=== PATIENT | male | born 1970 | race African-American/Black ===

== ENCOUNTER 2020-01-04 23:26 | Emergency (ER) | payer BC, OTHER ==
[2020-01-04 23:49] VITALS: PULSE 72; TEMP 98.1; BMI 32.6
[2020-01-05] MEDS ORDERED: ASPIRIN 81 MG CHEWABLE TABLETS PO ONE (00:09)
[2020-01-05] MEDS ORDERED: ASPIRIN 81 MG CHEWABLE TABLETS ONE (00:19)
--- NOTE | 2020-01-05 00:23 | PDOC ---
History of Present Illness - General Chief Complaint: Syncope/Near Syncope Stated Complaint: SYNCOPE Time Seen by Provider: 01/04/20 23:51 History Source: Patient Exam Limitations: No Limitations - History of Present Illness Initial Comments: 01/05/20 00:16 49 yo male pmh asthma, HTN (not taking medications) NC s/p 1 stent 12 years ago (not on AC or daily ASA) presents to the ED for sudden onset dizziness and weakness. at the bedside helps provide HPI. States around 10 pm pt noted to have gotten up from seated position, became significantly weak, nauseas (no vomiting) diaphoretic, had to hold the pt upright and sit him on the bed. Symptoms resolved over 1 hour, denies CP, SOB, back pain, WHITE, abdominal pain, changes in bowel or bladder habits, ear pain, recent illness. Past History - Past Medical History Allergies/Adverse Reactions: Allergies Allergy/AdvReac Type Severity Reaction Status Date / Time No Known Allergies Allergy Verified 01/05/20 16:19 Home Medications: Ambulatory Orders Albuterol Sulfate 0.042% [Ventolin 0.042% (Half-Strength) -] 1 neb PO Q4H PRN Montelukast Na [Singulair -] 10 mg PO DAILY 08/30/12 Ramipril [Altace] 10 mg PO DAILY 08/30/12 Salmeterol/Fluticasone [Advair 250Mcg/50Mcg -] 1 inh PO BID 08/30/12 Valsartan/Hydrochlorothiazide [Diovan Hct 160-25 mg Tablet] 1 combo PO DAILY 29/11 Ferrous Sulfate [Slow Fe] 142 mg PO BID #60 tablet.er 09/04/12 Vit C/Ascorbate Calcium,Sodium [Vitamin C 500 mg/15 ml Liquid] 500 mg PO BID # 60 ml 09/04/12 Asthma: Yes HTN: Yes - Surgical History Cardiac Surgery: Yes (stent placement x1) - Psycho Social/Smoking Cessation Hx Smoking Status: No Smoking History: Never smoked Number of Cigarettes Smoked Daily: 0 Hx Alcohol Use: No Drug/Substance Use Hx: No Substance Use Type: None Hx Substance Use Treatment: No Review of Systems - Review of Systems Constitutional: Yes: See HPI HEENTM: Yes: See HPI Respiratory: Yes: See HPI Cardiac (ROS): Yes: See HPI ABD/GI: Yes: See HPI : Yes: See HPI Musculoskeletal: Yes: See HPI Integumentary: Yes: See HPI Neurological: Yes: See HPI *Physical Exam - Vital Signs Last Vital Signs Temp Pulse Resp BP Pulse Ox 98.1 F 72 19 181/98 H 98 01/04/20 23:30 01/04/20 23:30 01/04/20 23:30 01/04/20 23:30 01/04/20 23:30 - Physical Exam General Appearance: Yes: Nourished, Appropriately Dressed. No: Apparent Distress HEENT: positive: EOMI Neck: positive: Supple. negative: Carotid bruit Respiratory/Chest: positive: Lungs Clear, Normal Breath Sounds. negative: Accessory Muscle Use, Labored Respiration, Crackles, Rales, Rhonchi, Stridor, Wheezing Cardiovascular: positive: Regular Rhythm, Regular Rate, S1, S2. negative: Edema , JVD, Murmur Vascular Pulses: Dorsalis-Pedis (R): 3+, Doralis-Pedis (L): 3+ Gastrointestinal/Abdominal: positive: Flat, Soft. negative: Protuberent, Distended, Guarding, Rebound, Tenderness Musculoskeletal: negative: CVA Tenderness Extremity: positive: Normal Capillary Refill, Normal Inspection, Normal Range of Motion Integumentary: positive: Normal Color, Dry, Warm Neurologic: positive: Fully Oriented, Alert, Normal Mood/Affect, Normal Response Heart Score/ECG Review - History History: Moderately suspicious - Electrocardiogram EKG: Normal - Age Age: 45-65 - Risk Factors Risk Factors Heart Score: Yes Hx Hypertension, Yes Hx Obesity - Troponin Troponin: </= normal limit ED Treatment Course - LABORATORY CBC & Chemistry Diagram: 01/05/20 01:04 01/05/20 01:04 - RADIOLOGY Radiology Studies Ordered: Category Date Time Status CHEST PA & LAT [RAD] Stat Radiology 01/05/20 00:09 Ordered Medical Decision Making - Medical Decision Making 01/05/20 01:45 49 yo male pmh asthma, HTN (not taking medications) NC s/p 1 stent 12 years ago (not on AC or daily ASA) presents to the ED for sudden onset dizziness and weakness. at the bedside helps provide HPI. States around 10 pm pt noted to have gotten up from seated position, became significantly weak, nauseas (no vomiting) diaphoretic, had to hold the pt upright and sit him on the bed. Symptoms resolved over 1 hour, denies CP, SOB, back pain, WHITE, abdominal pain, changes in bowel or bladder habits, ear pain, recent illness. vitals show elevated BP, known hx not on medications. Repeat at bed side 170s systolic. Neg orthostatics Cardiac work up Labs WNL including trop EKG NSR without changes 01/05/20 04:17 Pt refuses admission and requests to S/O AMA. Explained on 3 separate occasions that leaving the hospital can result in or permanent disability. Pt AOX3 expresses clear understanding in the presence of his and requests to leave. Will provide Cardiology F/U and offered return precautions pt understands Discharge - Discharge Information Problems reviewed: Yes Clinical Impression/Diagnosis: Syncope Condition: Stable Disposition: AGAINST MEDICAL ADVICE - Follow up/Referral Referrals: Lenard Garcia MD [Primary Care Provider] - Blue Brand MD [Staff Physician] - - Patient Discharge Instructions Patient Printed Discharge Instructions: DI for Syncope in Adults (Fainting), DI for Atypical Chest Pain Additional Instructions: You left the ER against medical advise with the understanding that leaving may lead to permanent or disability. You may return to the ER at anytime for continued care. Call the Principal Cyber Engineer referred to you to make an appointment and see your Primary Doctor within the next 48 hours. Thank you - Post Discharge Activity
--- NOTE | 2020-01-05 01:22 | PDOC ---
Documentation entered by Bertram Gonsalves SCRIBE, acting as scribe for Glenys Arteaga MD. Glenys Arteaga MD: This documentation has been prepared by the Brina cates Xhesika, SCRIBE, under my direction and personally reviewed by me in its entirety. I confirm that the documentation accurately reflects all work, treatment, procedures, and medical decision making performed by me. Attending Attestation - Resident Resident Name: KendrickviniSherman - ED Attending Attestation I have performed the following: I have examined & evaluated the patient, The case was reviewed & discussed with the resident, I agree w/resident's findings & plan, Exceptions are as noted - HPI HPI: 01/05/20 00:21 The patient is a 49 year old male with a significant PMH of HTN, hld, asthma, TX, CAD s/p stent who presents to the emergency department for syncopal episode. The patient states he stood up, felt dizzy and caught him before falling down. Pt states he lost 75 pounds in the last year being on "herbalife" and going to the gym. The patient denies chest pain, shortness of breath, headache and dizziness. Denies fever, chills, cough, nausea, vomiting, diarrhea and constipation. Denies dysuria, frequency, urgency and hematuria. Allergies: NKDA PCP: Lenard Major - Physicial Exam PE: 01/05/20 00:21 GENERAL: Awake, alert, and fully oriented, in no acute distress HEAD: No signs of trauma EYES: PERRLA, EOMI, sclera anicteric, conjunctiva clear ENT: Auricles normal inspection, hearing grossly normal, nares patent, oropharynx clear without exudates. Moist mucosa NECK: Normal ROM, supple, no lymphadenopathy, JVD, or masses LUNGS: Breath sounds equal, clear to auscultation bilaterally. No wheezes, and no crackles HEART: Regular rate and rhythm, normal S1 and S2, no murmurs, rubs or gallops ABDOMEN: Soft, nontender, normoactive bowel sounds. No guarding, no rebound. No masses EXTREMITIES: Normal range of motion, no edema. No clubbing or cyanosis. No cords, erythema, or tenderness NEUROLOGICAL: Cranial nerves II through XII grossly intact. SKIN: Warm, Dry, normal turgor, no rashes or lesions noted. - Medical Decision Making 01/05/20 01:19 49-year-old male with a history of syncopal episode in which his caught him and sat him down Past medical history hypertension, hyper atherosclerotic heart disease, status post cardiac cath with 1 stent 12 years ago, hyperlipidemia, asthma Patient felt that the room was spinning He currently is denying any acute chest pain or shortness of breath However given his past medical history we will do ASC work-up He has lost 75 pounds over the past year following Herbalife and working out the gym. Unfortunately he has not been taking any medications and he had been on several hypertensive medicines in the past EKG is normal sinus rhythm at 78 bpm 01/05/20 01:30 imp syncope/ ACS w/u
[2020-01-05 01:33] LABS: BASO % 0.7 % (0-2.0); EOS % 4.7 % (0-4.5); HEMATOCRIT 45.5 % (35.4-49); HEMOGLOBIN 14.8 GM/dL (11.7-16.9); LYMPH % 28.8 % (8-40); MCH 27.7 pg (25.7-33.7); MCHC 32.5 g/dl (32.0-35.9); MEAN CELL VOLUME 85.2 fl (80-96); MONO % 14.1 % (3.8-10.2); NEUT % 51.7 % (42.8-82.8); PLATELET COUNT 241 K/MM3 (134-434); RBC 5.34 M/mm3 (4.00-5.60); RDW 13.2 % (11.9-15.9); WHITE BLOOD COUNT 7.2 K/mm3 (4.0-10.0)
[2020-01-05] MEDS ORDERED: amLODIPine BESYLATE 5 MG TABLET (FP) PO ONE (01:45)
[2020-01-05 02:00] LABS: ALBUMIN 3.3 g/dl (3.4-5.0); BILIRUBIN,TOTAL 0.2 mg/dL (0.2-1); BLOOD UREA NITROGEN 16.8 mg/dL (7-18); CALCIUM 8.9 mg/dL (8.5-10.1); CREATININE 0.8 mg/dL (0.55-1.3); MAGNESIUM 2.3 mg/dL (1.8-2.4); POTASSIUM 3.2 mmol/L (3.5-5.1); TOT PROT 6.7 g/dl (6.4-8.2)
[2020-01-05] MEDS ORDERED: amLODIPine BESYLATE 5 MG TABLET (FP) ONE (02:28)
[2020-01-05 02:32] VITALS: BP 176/100
[2020-01-05 02:32] LABS: INR 1.11 (0.83-1.09); PROTHROMBIN TIME (PATIENT) 13.1 SEC (9.7-13.0)
[2020-01-05 02:34] LABS: ACTIVATED PTT 28.4 SECONDS (25.2-36.5)
--- NOTE | 2020-01-05 09:24 | EKG ---
Test Reason : Blood Pressure : / mmHG Vent. Rate : 078 BPM Atrial Rate : 078 BPM P-R Int : 142 ms QRS Dur : 104 ms QT Int : 406 ms P-R-T Axes : 042 035 011 degrees QTc Int : 462 ms NORMAL SINUS RHYTHM NORMAL ECG WHEN COMPARED WITH ECG OF 29-AUG-2012 23:46, QT HAS SHORTENED Confirmed by Gilberto Wyatt MD ([id number]) on 01/05/2020 9:24:02 AM Referred By: Confirmed By:Gilberto Wyatt MD
== END 2020-01-05 04:32 | disposition left against medical advice (07) ==
LOC: SUPCPDRO 23:26 → JER 23:26
DX: R55 Syncope and collapse (principal); I25.10 Atherosclerotic heart disease of native coronary artery without angina pectoris; I10 Essential (primary) hypertension; Z95.5 Presence of coronary angioplasty implant and graft; I25.2 Old myocardial infarction; J45.909 Unspecified asthma, uncomplicated
CPT/HCPCS: 36415; 80053; 82550; 82553; 83735; 84484; 85025; 85610; 85730; 93005; 93010; 99284-25

== ENCOUNTER 2020-01-05 15:34 | Emergency (ER) | payer BC ==
[2020-01-05 16:23] VITALS: BMI 33.1
--- NOTE | 2020-01-05 16:24 | PDOC ---
Rapid Medical Evaluation Time Seen by Provider: 01/05/20 16:20 Medical Evaluation: Allergies Allergy/AdvReac Type Severity Reaction Status Date / Time No Known Allergies Allergy Verified 01/05/20 16:19 01/05/20 16:23 Pt c/o: continual nausea since AMA at 430am, no CP Pt on brief exam: 176/94, otherwise normal vs Pt ordered for: iv , labs, mag, pt to proceed to the ED Discharge Disposition - Diagnosis Syncope - Discharge Dispostion Disposition: HOME Condition at time of disposition: Stable - Referrals Referrals: Lenard Garcia MD [Primary Care Provider] - Blue Brand MD [Staff Physician] - - Patient Instructions Printed Discharge Instructions: DI for Syncope in Adults (Fainting) Additional Instructions: You left the ER against medical advise with the understanding that leaving may lead to permanent or disability. You may return to the ER at anytime for continued care. Call the Folder Hand referred to you to make an appointment and see your Primary Doctor within the next 48 hours. Thank you - Post Discharge Activity
[2020-01-05 17:23] LABS: BASO % 0.3 % (0-2.0); EOS % 4.6 % (0-4.5); HEMOGLOBIN 15.2 GM/dL (11.7-16.9); LYMPH % 28.9 % (8-40); MCH 28.1 pg (25.7-33.7); MEAN CELL VOLUME 85.4 fl (80-96); MEAN PLT VOLUME 10.9 fl (7.5-11.1); MONO % 15.9 % (3.8-10.2); NEUT % 50.3 % (42.8-82.8); PLATELET COUNT 242 K/MM3 (134-434); RBC 5.39 M/mm3 (4.00-5.60); RDW 13.7 % (11.9-15.9); WHITE BLOOD COUNT 5.9 K/mm3 (4.0-10.0)
[2020-01-05 18:23] LABS: ALBUMIN 3.4 g/dl (3.4-5.0); BILIRUBIN,TOTAL 0.4 mg/dL (0.2-1); BLOOD UREA NITROGEN 11.7 mg/dL (7-18); CALCIUM 9.1 mg/dL (8.5-10.1); CREATININE 0.8 mg/dL (0.55-1.3); MAGNESIUM 2.2 mg/dL (1.8-2.4); POTASSIUM 3.7 mmol/L (3.5-5.1); TOT PROT 7.1 g/dl (6.4-8.2)
--- NOTE | 2020-01-05 21:37 | PDOC ---
Attending Attestation - Resident Resident Name: Sherman Wiley - ED Attending Attestation I have performed the following: I have examined & evaluated the patient, The case was reviewed & discussed with the resident, I agree w/resident's findings & plan, Exceptions are as noted - HPI HPI: 01/05/20 21:36 This 49-year-old male was seen in the emergency department last evening after having a syncopal episode but left AGAINST MEDICAL ADVICE. He returns today because his is upset he left AGAINST MEDICAL ADVICE. He has not had a recurrent syncopal episode since leaving last evening. - Physicial Exam PE: 01/05/20 21:57 Well-nourished well-developed 49-year-old male in no acute distress ambulating emergency communications department chair normocephalic atraumatic Neck is supple there is no bruits and no JVD Lungs are clear to auscultation bilaterally CVS is regular rate and rhythm S1-S2 His abdomen is nontender Skin warm and dry Neuro he is alert and oriented x3, motor strength 5/5 bilaterally, ambulating with ease - Medical Decision Making 01/05/20 21:58 49-year-old male had a syncopal episode last night and then left AMA returns because of concerns of his He has not had any recurrent symptoms He denies any chest pain, any shortness of breath, any dizziness nausea vomiting weakness or visual changes His labs were repeated ,his troponin remains negative 01/05/20 22:02 Patient told to follow-up with his silk trimmer Dr. Blue Brand and call tomorrow to make an appointment
[2020-01-05 22:45] VITALS: BP 171/93; PULSE 90; TEMP 97.8
--- NOTE | 2020-01-05 22:54 | PDOC ---
History of Present Illness - General Chief Complaint: Syncope/Near Syncope Stated Complaint: SYNCOPE Time Seen by Provider: 01/05/20 16:20 History Source: Patient Exam Limitations: No Limitations - History of Present Illness Initial Comments: 01/05/20 22:44 Pt seen by me yesterday Note below "49 yo male pmh asthma, HTN (not taking medications) [place] s/p 1 stent 12 years ago (not on AC or daily ASA) presents to the ED for sudden onset dizziness and weakness. at the bedside helps provide HPI. States around 10 pm pt noted to have gotten up from seated position, became significantly weak, nauseas (no vomiting) diaphoretic, had to hold the pt upright and sit him on the bed. Symptoms resolved over 1 hour, denies CP, SOB, back pain, WHITE, abdominal pain, changes in bowel or bladder habits, ear pain, recent illness." Denies having another presyncopal episode, CP, Palpitations, SOB or any new changes Pt reports back to the ED because his urged him to return since he signed out AMA last night Past History - Past Medical History Allergies/Adverse Reactions: Allergies Allergy/AdvReac Type Severity Reaction Status Date / Time No Known Allergies Allergy Verified 01/05/20 16:19 Home Medications: Ambulatory Orders Albuterol Sulfate 0.042% [Ventolin 0.042% (Half-Strength) -] 1 neb PO Q4H PRN Montelukast Na [Singulair -] 10 mg PO DAILY 08/30/12 Ramipril [Altace] 10 mg PO DAILY 08/30/12 Salmeterol/Fluticasone [Advair 250Mcg/50Mcg -] 1 inh PO BID 08/30/12 Valsartan/Hydrochlorothiazide [Diovan Hct 160-25 mg Tablet] 1 combo PO DAILY 29/11 Ferrous Sulfate [Slow Fe] 142 mg PO BID #60 tablet.er 09/04/12 Vit C/Ascorbate Calcium,Sodium [Vitamin C 500 mg/15 ml Liquid] 500 mg PO BID # 60 ml 09/04/12 Asthma: Yes COPD: No HTN: Yes - Surgical History Cardiac Surgery: Yes (stent placement x1) - Immunization History Td Vaccination: Yes TDAP Vaccination: Yes Immunization Up to Date: Yes - Psycho Social/Smoking Cessation Hx Smoking Status: No Smoking History: Unknown if ever smoked Number of Cigarettes Smoked Daily: 0 Hx Alcohol Use: No Drug/Substance Use Hx: No Substance Use Type: None Hx Substance Use Treatment: No Review of Systems - Review of Systems Constitutional: Yes: See HPI HEENTM: Yes: See HPI Respiratory: Yes: See HPI Cardiac (ROS): Yes: See HPI ABD/GI: Yes: See HPI : Yes: See HPI Musculoskeletal: Yes: See HPI Integumentary: Yes: See HPI Neurological: Yes: See HPI *Physical Exam - Vital Signs Last Vital Signs Temp Pulse Resp BP Pulse Ox 98.1 F 79 16 176/94 H 98 01/05/20 16:21 01/05/20 16:21 01/05/20 16:21 01/05/20 16:21 01/05/20 16:21 - Physical Exam General Appearance: Yes: Nourished, Appropriately Dressed. No: Apparent Distress HEENT: positive: EOMI Respiratory/Chest: positive: Lungs Clear, Normal Breath Sounds. negative: Respiratory Distress, Rapid RR, Crackles, Rales, Rhonchi, Stridor, Wheezing Cardiovascular: positive: Regular Rhythm, Regular Rate, S1, S2. negative: Edema , JVD, Murmur Vascular Pulses: Dorsalis-Pedis (R): 4+, Doralis-Pedis (L): 4+ Gastrointestinal/Abdominal: positive: Flat, Soft. negative: Pulsatile Mass, Protuberent, Distended, Guarding, Rebound, Tenderness Musculoskeletal: negative: CVA Tenderness Extremity: positive: Normal Capillary Refill, Normal Inspection, Normal Range of Motion Integumentary: positive: Normal Color, Dry, Warm Neurologic: positive: Fully Oriented, Alert, Normal Mood/Affect, Normal Response ED Treatment Course - LABORATORY CBC & Chemistry Diagram: 01/05/20 16:37 01/05/20 16:37 - ADDITIONAL ORDERS Additional order review: Laboratory Results 01/05/20 01/05/20 16:37 16:37 Sodium 142 Potassium 3.7 Chloride 107 Carbon Dioxide 28 Anion Gap 7 L BUN 11.7 Creatinine 0.8 Est GFR (CKD-EPI)AfAm 122.43 Est GFR (CKD-EPI)NonAf 105.63 Random Glucose 68 L Calcium 9.1 Magnesium 2.2 Total Bilirubin 0.4 AST 20 ALT 34 Alkaline Phosphatase 84 Creatine Kinase 118 Troponin I < 0.02 Total Protein 7.1 Albumin 3.4 01/05/20 16:37 RBC 5.39 MCV 85.4 MCHC 33.0 RDW 13.7 MPV 10.9 Neutrophils % 50.3 Lymphocytes % 28.9 Monocytes % 15.9 H Eosinophils % 4.6 H Basophils % 0.3 Medical Decision Making - Medical Decision Making 01/05/20 22:48 "49 yo male pmh asthma, HTN (not taking medications) [place] s/p 1 stent 12 years ago (not on AC or daily ASA) presents to the ED for sudden onset dizziness and weakness. at the bedside helps provide HPI. States around 10 pm pt noted to have gotten up from seated position, became significantly weak, nauseas (no vomiting) diaphoretic, had to hold the pt upright and sit him on the bed. Symptoms resolved over 1 hour, denies CP, SOB, back pain, WHITE, abdominal pain, changes in bowel or bladder habits, ear pain, recent illness." Denies having another presyncopal episode, CP, Palpitations, SOB or any new changes Pt reports back to the ED because his urged him to return since he signed out AMA last night Vitals today show elevated once again today, not on medications, states the amlodipine given to him yesterday made him feel uneasy EKG shows few PVCs otherwise same as yesterday, NSR Cardiac work up today including trop neg 24 hours multiple trops and no repeat symptoms, Pt safe for DC home with Cardiology f/u Pt agrees and understands plan Strict return precautions given Discharge - Discharge Information Problems reviewed: Yes Clinical Impression/Diagnosis: Syncope Disposition: HOME - Admission No - Follow up/Referral Referrals: Lenard Garcia MD [Primary Care Provider] - Blue Brand MD [Staff Physician] - - Patient Discharge Instructions Patient Printed Discharge Instructions: DI for Syncope in Adults (Fainting) Additional Instructions: You left the ER against medical advise with the understanding that leaving may lead to permanent or disability. You may return to the ER at anytime for continued care. Call the Lvn Lpn referred to you to make an appointment and see your Primary Doctor within the next 48 hours. Thank you - Post Discharge Activity
--- NOTE | 2020-01-06 11:38 | EKG ---
Test Reason : Blood Pressure : / mmHG Vent. Rate : 081 BPM Atrial Rate : 081 BPM P-R Int : 134 ms QRS Dur : 102 ms QT Int : 380 ms P-R-T Axes : 037 048 015 degrees QTc Int : 441 ms SINUS RHYTHM WITH FREQUENT PREMATURE VENTRICULAR COMPLEXES OTHERWISE NORMAL ECG WHEN COMPARED WITH ECG OF 05-JAN-2020 00:56, PREMATURE VENTRICULAR COMPLEXES ARE NOW PRESENT Confirmed by Gilberto Wyatt MD ([id number]) on 01/06/2020 11:38:14 AM Referred By: Confirmed By:Gilberto Wyatt MD
== END 2020-01-05 23:10 | disposition home or self-care (01) ==
LOC: JER 15:34
DX: R55 Syncope and collapse (principal); J45.909 Unspecified asthma, uncomplicated; I10 Essential (primary) hypertension; I25.2 Old myocardial infarction; Z95.5 Presence of coronary angioplasty implant and graft
CPT/HCPCS: 36415; 80053; 82550; 83735; 84484; 85025; 93005; 93010; 99283-25